=== PATIENT | male | born 1975 | race Asian ===

== ENCOUNTER → 2016-10-26 | Outpatient (CLI) | payer OTHER | END | disposition home or self-care (01) | LOC: EMPHLTH 07:57 | PROVIDERS: ATTEND Internal Medicine | DX: Z02.1 Encounter for pre-employment examination (principal) | CPT/HCPCS: 86706; 86735; 86762; 86765; 86787 ==

== ENCOUNTER 2017-09-01 12:16 | Emergency (ER) | payer OTHER ==
[~2017-09-01] VITALS: Ht 170.2 cm; Wt 75.0 kg
[2017-09-01] MEDS ORDERED: PERTUSS(ACELL),DIPH,TET VAC/PF 0.5 ML VIAL IM ONE (12:30)
[2017-09-01] MEDS ORDERED: SODIUM CHLORIDE 0.9% 250 ML IRRIG SOLUTION BOTTLE IRRIG ONE (12:30)
[2017-09-01] MEDS ORDERED: BACITRACIN 0.9 GM PACKET OINTMENT TP ONE ×2 (12:42→12:43)
[2017-09-01 12:45] VITALS: BP 122/86
== END 2017-09-01 12:57 | disposition home or self-care (01) ==
LOC: EMS 12:18
DX: S61.411A Laceration without foreign body of right hand, initial encounter (principal); W45.8XXA Other foreign body or object entering through skin, initial encounter; Y93.89 Activity, other specified; Y92.89 Other specified places as the place of occurrence of the external cause; Y99.8 Other external cause status
CPT/HCPCS: 90471; 90715; 99283

== ENCOUNTER → 2020-12-10 | Outpatient (CLI) | payer OTHER ==
[2020-12-10 10:10] LABS: BASOPHILS % (AUTO) 1.5 % (0.0-2.0); EOSINOPHILS % (AUTO) 4.2 % (1.0-6.0); HEMATOCRIT 45.8 % (41-53); HEMOGLOBIN 15.4 g/dL (13.5-17.5); LYMPHOCYTES # (AUTO) 1.5 K/uL (1.0-4.8); LYMPHOCYTES % (AUTO) 32.4 % (22.0-44.0); MEAN CORPUSCULAR HEMOGLOBIN 27.9 pg (26.0-34.0); MEAN CORPUSCULAR HGB CONC 33.6 G/dL (31.0-37.0); MEAN CORPUSCULAR VOLUME 83 fL (80-100); MONOCYTES # (AUTO) 0.2 K/uL (0.1-1.0); MONOCYTES % (AUTO) 5.1 % (2.0-9.0); NEUTROPHILS # (AUTO) 2.7 K/uL (1.8-7.7); NEUTROPHILS % (AUTO) 56.8 % (40.0-70.0); PLATELET COUNT (AUTO) 254 K/uL (150-450); RED BLOOD CELL COUNT(AUTO) 5.52 MIL/uL (4.50-5.90); RED CELL DISTRIBUTION WIDTH 12.9 % (11.5-14.5)
[2020-12-10 10:25] LABS: ALANINE AMINOTRANSFERASE 47 U/L (12-78); ALKALINE PHOSPHATASE 80 U/L (46-116); ANION GAP 9 mmol/L (8-16); ASPARTATE AMINOTRANSFERASE 18 U/L (15-37); BILIRUBIN,TOTAL 0.8 mg/dL (0.1-1.0); CARBON DIOXIDE 26 mmol/L (22-29); CHLORIDE 101 mmol/L (98-107); CHOLESTEROL 250 mg/dL (131-200); CREATININE 0.86 mg/dL (0.60-1.30); GLOMERULAR FILTR. RATE CALC > 60 mL/min (>60); GLUCOSE,RANDOM 313 mg/dL (70-110); HDL CHOLESTEROL 42 mg/dL (40-60); LDL CHOL (CALC.) 176 mg/dL (0-130); SODIUM SERUM 136 mmol/L (136-145); TOTAL PROTEIN, SERUM 7.7 g/dL (6.4-8.2); TRIGLYCERIDES 160 mg/dL (15-150); UREA NITROGEN, BLOOD 19 mg/dL (7-18)
== END | disposition home or self-care (01) ==
LOC: LABPV 08:45
PROVIDERS: ATTEND Internal Medicine Geriatric Medicine
DX: Z02.1 Encounter for pre-employment examination (principal)
CPT/HCPCS: 86480

== ENCOUNTER → 2020-12-12 | Outpatient (CLI) | payer OTHER ==
[2020-12-13 04:09] LABS: RUBELLA AB IGG-REFLAB 2.26 index (Immune >0.99)
== END | disposition home or self-care (01) ==
LOC: LABPV 14:08
PROVIDERS: ATTEND Internal Medicine Geriatric Medicine
DX: Z00.00 Encounter for general adult medical examination without abnormal findings (principal); M19.90 Unspecified osteoarthritis, unspecified site
CPT/HCPCS: 86706; 86735; 86762; 86765; 86787